=== PATIENT | female | born 1945 | race Caucasian/White ===

== ENCOUNTER 2016-11-15 08:00 | Inpatient (IN) | payer MEDICARE, OTHER ==
[~2016-11-15] VITALS: Ht 165.1 cm; Wt 85.8 kg
[2016-11-22] MEDS ORDERED: MIRA50TA PO ×2 (09:01)
[2016-11-22] MEDS ORDERED: IBUP200C PO ×2 (09:01)
[2016-11-22] MEDS ORDERED: FISH1000 PO ×2 (09:01)
[2016-11-22] MEDS ORDERED: COEN1CAP PO ×2 (09:01)
[2016-11-22] MEDS ORDERED: VITA10002 PO ×2 (09:01)
[2016-11-22] MEDS ORDERED: GLUC1CAP16 PO ×2 (09:01)
[2016-11-22] MEDS ORDERED: CRAN600T PO ×2 (09:01)
[2016-11-22] MEDS ORDERED: METF500T PO ×2 (09:01)
[2016-11-22] MEDS ORDERED: LEVO137T2 PO ×2 (09:01)
[2016-11-22] MEDS ORDERED: OXYC30TA PO ×2 (09:01)
[2016-11-22] MEDS ORDERED: VITA2000 PO ×2 (09:01)
--- NOTE | 2016-11-23 14:10 | MH ---
cc: Terry SANCHEZ M.D. DATE OF ADMISSION: 11/30/2016 ADMITTING DIAGNOSIS: Osteoarthritic degeneration of the left hip, now being admitted for left total hip arthroplasty. HISTORY OF PRESENT ILLNESS: This pleasant 71 year-old female is being admitted today for left total hip arthroplasty, due to severe painful osteoarthritic degeneration of the left hip. PAST MEDICAL HISTORY: She states that she is borderline diabetic Has some anesthetic problems and always runs a high calcium level, has sciatic and thyroid issues. CURRENT MEDICATIONS: 1. Thyroid medicine. 2. Metformin PREVIOUS SURGERIES: 1. Hysterectomy 2. Eye surgery. REVIEW OF SYSTEMS Noncontributory. FAMILY HISTORY: Noncontributory. SOCIAL HISTORY: She smokes four cigarettes per day and does not drink. ALLERGIES PENICILLIN SULFA STATINS ASPARTAME MELOXICAM PHYSICAL EXAMINATION: IN GENERAL: We find a 71 year-old female well-developed, well-nourished, alert and oriented times three. Complaining of pain in the left hip and inability to move her left hip well. VITAL SIGNS: Blood pressure 118/82. Pulse 89, regular, respirations 18, temperature 98.2, pulse oximetry 97% on room air. HEAD, EARS, EYES, NOSE, AND THROAT; Eyes Pupils equal, round, reactive to light and accommodation, extraocular muscles intact. Ear, nose, and mouth; clear. NECK: Supple. LUNGS: Clear. HEART: Regular rate. ABDOMEN: The abdomen is soft. Positive bowel sounds, nontender. EXTREMITIES: The extremities reveal a left hip without decreased range of motion. She is neurologically intact to her toes. IMPRESSION: At this time is severe osteoarthritic, degeneration of left hip. PLAN: Admission for left total hip arthroplasty today. The patient was given a prescription for postoperative pain control in the office and anticoagulation therapy and plans on going home after her stay in the hospital. JMD FRANNIE Mares/cl /1:31 PM /1:35 PM
[2016-11-30] MEDS ORDERED: LACTATED RINGER'S 1000 ML IV PRN (06:30)
[2016-11-30] MEDS ORDERED: METOPROLOL TARTRATE 25 MG TAB PO PRN (06:30)
[2016-11-30] MEDS ORDERED: CHLORHEXIDINE GLUCONATE 4% SOLN 120 ML BTL TOPICAL SCH (06:30)
[2016-11-30] MEDS ORDERED: CLINDAMYCIN 900 MG/NS 100 ML IV SCH ×2 (06:30)
[2016-11-30] MEDS ORDERED: SODIUM CHLORID 0.9% 500 ML IV PRN (06:30)
[2016-11-30] MEDS ORDERED: TRANEXAMIC ACID INJ 840 MG in SODIUM CHLORIDE 0.9% INJ 100 ML IV SCH (06:30)
[2016-11-30] MEDS ORDERED: EXPAREL PERI-ARTICULAR INJECTION (TOTAL VOL. 60 ML) P-ARTICULR SCH ×2 (06:30)
[2016-11-30] MEDS ORDERED: CHLORHEXIDINE GLUCONATE 2 % 1 PACK (2 CLOTHS) TOPICAL PRN (06:30)
[2016-11-30] MEDS ORDERED: INSULIN HUMAN REGULAR 1,000 UNITS/10 ML VIAL SQ PRN (06:30)
[2016-11-30] MEDS ORDERED: POVIDONE IODINE 5% (ANTISEPSIS KIT) 4 APPLICATIONS EACH NARE PRN (06:30)
[2016-11-30] MEDS ORDERED: VANCOMYCIN 1000 MG/NS 250 ML (for <70 kg) IV SCH ×2 (06:30)
[2016-11-30] MEDS ORDERED: SODIUM CHLORIDE 0.9% INJ 100 ML ONE (06:31)
[2016-11-30 06:43] VITALS: BP 131/69; PULSE 70; RESP 16; TEMP 98.1; O2SAT 95
[2016-11-30] MEDS ORDERED: MIDAZOLAM HCL 2 MG/2 ML VIAL ONE (07:30)
[2016-11-30] MEDS ORDERED: FAMOTIDINE 20 MG/2 ML VIAL ONE (07:30)
[2016-11-30] MEDS ORDERED: ACETAMINOPHEN 1000 MG/100 ML VIAL IV ONE (07:30)
[2016-11-30] MEDS ORDERED: DEXAMETHASONE SOD PHOS 4 MG/ML VIAL ONE (07:31)
[2016-11-30] MEDS ORDERED: KETAMINE HCL 500 MG/5 ML VIAL ONE (07:38)
[2016-11-30] MEDS ORDERED: NALOXONE HCL 0.4 MG/ML AMP IV PRN (08:00)
[2016-11-30] MEDS ORDERED: TEMAZEPAM 15 MG CAP PO PRN (08:00)
[2016-11-30] MEDS ORDERED: MISCELLANEOUS NURSING INFORMATION XX PRN (08:00)
[2016-11-30] MEDS ORDERED: ONDANSETRON HCL 4 MG/2 ML VIAL IVP PRN (08:00)
[2016-11-30] MEDS ORDERED: TRANEXAMIC ACID INJ 0 MG in SODIUM CHLORIDE 0.9% INJ 100 ML IV SCH (08:00)
[2016-11-30] MEDS ORDERED: BISACODYL 10 MG SUPP RECTAL PRN (08:00)
[2016-11-30] MEDS ORDERED: ACETAMINOPHEN 325 MG TAB PO PRN (08:00)
[2016-11-30] MEDS ORDERED: MORPHINE SULFATE 8 MG/ML INJ IV PUSH PRN (08:00)
[2016-11-30] MEDS ORDERED: MAGNESIUM HYDROXIDE SUSP 30 ML CUP PO PRN (08:00)
[2016-11-30] MEDS ORDERED: SODIUM CHLORIDE 0.9% FLUSH 5 ML FLUSH IVF PRN (08:00)
[2016-11-30] MEDS ORDERED: oxyCODONE/ACETAMINOPHEN 5 MG/325 MG TAB PO PRN (08:00)
--- NOTE | 2016-11-30 08:01 | HHI.FF ---
Face to Face Verification Diagnosis: (1) Status post total hip replacement, left Physical Therapy Gait training Hip: Total hip, Protocol: Left, Abduction pillow while in bed, Progress to weight bearing Canvas Knee Splint: When in bed & 2 pillows btw thighs Nursing RN: 3 days/week x 2 weeks Nursing: Roberto teaching Dressing Changes: Do not change dressing I have seen patient Luba Arias on 11/30/16. My clinical findings support the need for the requested home health care services because: Limited ability to care for self High risk of falls I certify that my clinical findings support that this patient is homebound because: Unsteady gait/balance Terry Hays MD November 30, 2016 08:01
[2016-11-30] MEDS ORDERED: MISC-163 (08:03)
[2016-11-30] MEDS ORDERED: WALKER WHEELS/F1 MIS (08:03)
[2016-11-30] MEDS: TRANEXAMIC ACID INJ 840 MG in SODIUM CHLORIDE 0.9% INJ 100 ML IV SCH ×2 (08:09→11:22)
[2016-11-30] MEDS ORDERED: GENTAMICIN SULFATE 80 MG/2 ML VIAL IRRIGATION ONE (08:44)
[2016-11-30] MEDS ORDERED: NON-FORMULARY DRUG (Levothyroxine 137 MCG) PO SCH (09:00)
[2016-11-30] MEDS ORDERED: NON-FORMULARY DRUG (Omega-3 Fatty Acids (Fish Oil) 1 CAP) PO SCH (09:00)
[2016-11-30] MEDS ORDERED: NON-FORMULARY DRUG (Coenzyme Q10 (Ubidecarenone) (Co Q-10) 1 CAP) PO SCH (09:00)
[2016-11-30] MEDS ORDERED: ENOXAPARIN SODIUM 30 MG/0.3 ML SYRINGE SQ SCH (09:00)
[2016-11-30] MEDS: CYANOCOBALAMIN 1,000 MCG TAB PO SCH (09:00)
[2016-11-30] MEDS ORDERED: GLUCOSAMINE CHONDROITIN VIT C PO SCH (09:00)
[2016-11-30] MEDS ORDERED: NON-FORMULARY DRUG (Mirabegron (Myrbetriq) 50 MG) PO SCH (09:00)
[2016-11-30] MEDS: CHOLECALCIFEROL (VIT D3) 1000 UNIT TAB PO SCH (09:00)
[2016-11-30] MEDS: SODIUM CHLORIDE 0.9% FLUSH 5 ML FLUSH IVF SCH ×2 (09:00→20:13)
[2016-11-30] MEDS: metFORMIN HCL 500 MG TAB PO SCH (10:00)
[2016-11-30] MEDS ORDERED: Post-op Orders (for Pharmacy) MISC XX ONE (10:31)
[2016-11-30] MEDS ORDERED: fentaNYL CITRATE 250 MCG/5 ML AMP ONE (10:39)
[2016-11-30] MEDS: LACTATED RINGER'S 1000 ML INJ 1,000 ML IV SCH ×2 (10:55→20:13)
[2016-11-30] MEDS: MORPHINE SULFATE 30 MG/30 ML PCA IV SCH ×2 (10:56→17:12)
[2016-11-30] MEDS ORDERED: DO NOT ADM ANY ANTICOAGULANT DRUGS PRN (11:00)
--- NOTE | 2016-11-30 11:20 | RADRPT ---
EXAM DATE/TIME: 11/30/2016 10:48 [facility] COMPARISON: No previous studies available for comparison. INDICATIONS : Post op left hip surgery. MEDICAL HISTORY : None. SURGICAL HISTORY : None. ENCOUNTER: Initial ACUITY: 1 day PAIN SCORE: 5/10 LOCATION: Left hip FINDINGS: Examination of the hip demonstrates total hip arthroplasty in satisfactory position. The alignment is anatomic. CONCLUSION: Post surgical changes as above. David Pablo MD on November 30, 2016 at 11:11 Board Certified Radiologist. This report was verified electronically.
[2016-11-30 11:50] VITALS: BP 159/71; PULSE 88; RESP 18; TEMP 97.1; O2SAT 97
[2016-11-30] MEDS ORDERED: ONDANSETRON HCL 4 MG/2 ML VIAL IV PUSH ONE (12:00)
[2016-11-30] MEDS ORDERED: PROPOFOL 200 MG/20 ML AMP IV ONE (12:00)
[2016-11-30] MEDS ORDERED: NEOSTIGMINE 3 MG/3 ML SYR IV ONE (12:00)
[2016-11-30] MEDS ORDERED: PHENYLEPH/NS 1000 MCG/10 ML SYR IV ONE (12:00)
[2016-11-30] MEDS ORDERED: ePHEDrine/NS 25 MG/5 ML SYR IV ONE (12:00)
[2016-11-30] MEDS ORDERED: LACTATED RINGER'S 1000 ML INJ 1,000 ML IV ONE (12:30)
--- NOTE | 2016-11-30 13:31 | MP ---
cc: Terry HAYS DATE OF SURGERY 11/30/2016 PREOPERATIVE DIAGNOSIS Osteoarthritic degeneration left hip. POSTOPERATIVE DIAGNOSIS Osteoarthritic degeneration left hip. SURGERY PERFORMED Left total hip arthroplasty using Aesculap components size 12 lateralized stem with a size 52 cup and 28-mm screw, 36 E-liner and 36 short ceramic head. No cement utilized. SURGEON Dr. Hays [facility], [facility] ANESTHESIA General intubation PROCEDURE The patient was brought to the Operating Room, where after successful induction of spinal anesthesia was placed on the operating room table in the right lateral decubitus position. The left hip, thigh and leg were prepped and draped in the usual manner. A posterolateral approach was then utilized by making an incision over the proximal portion of the femur lateral aspect, carried across the greater trochanter, carried posterior in a curved incision toward the buttock. The incision was carried down through the subcutaneous tissue, through the fibers of the tensor fascia genesis and gluteus gayla to expose the greater trochanteric bursa. This was then removed by sharp and blunt dissection. The hip was then internally rotated to expose the insertions of the short external rotators of the hip and were incised at their insertion into the greater trochanter and reflected posterior to protect the sciatic nerve. These were held with a Charnley retractor to better visualize the hip joint. The capsule was identified and removed by sharp dissection. The hip was then dislocated by internal rotation and flexion of the hip. The femoral calcar was then measured using the trial components for the appropriate length cut of the neck using an oscillating saw. After the cut was made the head was removed. The acetabulum was then approached and measured, the acetabulum reamed with the acetabular reamers. Next, the femoral calcar was approached by first inserting a canal finder followed by rigid reamers, followed by a cookie-cutter to the appropriate size, in this case being a #15. The broach was left in place and a planer used to plane the calcar to a smooth finish. The broach was then removed. The trial components were then inserted into place, the hip reduced, found to track smoothly with no evidence of subluxation or dislocation. All trial components were removed. The wound was irrigated copiously with antibiotic solution and Water-Pik. The actual components were then inserted and impacted into place using Aesculap components size 12 lateralized stem with a size 52 cup and 28-mm screw, 36 E-liner and 36 short ceramic head. No cement utilized. The hip was reduced, found to track smoothly with no evidence of subluxation or dislocation. 60 cc of Exparel was used as a local block on the anterior aspect of the hip incision staying away from the sciatic nerve. The wound was irrigated copiously with antibiotic solution, meticulous hemostasis achieved. The capsule was approximated with interrupted #1 Vicryl suture. The deep fascia approximated with running #2 quill, subcutaneous tissue approximated using interrupted running 2-0 and 4-0 Monocryl suture and a Primapore dressing, knee immobilizer and abduction pillow brace. No drain utilized. The sciatic nerve identified and protected throughout the procedure. The estimated blood loss was 250 cc. Sponge and suture counts correct. The patient tolerated procedure well and left the operating room in satisfactory condition. J. MD FRANNIE Urias/ALBAN /10:08 AM /1:22 PM
[2016-11-30] MEDS: PCA - TOTAL MG MORPHINE DELIVERED PER SHIFT SCH ×2 (14:00→20:47)
[2016-11-30] MEDS ORDERED: CLINDAMYCIN 150 MG CAP PO SCH (14:00)
[2016-11-30] MEDS: LEVOTHYROXINE SODIUM 112 MCG TAB PO SCH (15:14)
[2016-11-30] MEDS: TOLTERODINE TARTRATE 4 MG CAP LA PO SCH (15:15)
[2016-11-30] MEDS: LEVOTHYROXINE SODIUM 25 MCG TAB PO SCH (15:15)
[2016-11-30 16:00] VITALS: BP 128/62; PULSE 88; RESP 19; TEMP 97.1; O2SAT 94
[2016-11-30 19:50] VITALS: BP 143/63; PULSE 95; RESP 19; TEMP 98.1; O2SAT 96
[2016-11-30] MEDS: CLINDAMYCIN INJ 900 MG in SODIUM CHLORIDE 0.9% INJ 100 ML IV SCH (23:15)
[2016-11-30 23:25] VITALS: BP 146/67; PULSE 98; RESP 18; TEMP 98.7; O2SAT 96
[2016-12-01] MEDS: oxyCODONE/ACETAMINOPHEN 5 MG/325 MG TAB PO PRN ×4 (03:19→15:58)
[2016-12-01 04:35] VITALS: BP 126/58; PULSE 117; RESP 18; TEMP 98.9; O2SAT 97
[2016-12-01] MEDS: PCA - TOTAL MG MORPHINE DELIVERED PER SHIFT SCH (06:00)
[2016-12-01] MEDS: CLINDAMYCIN INJ 900 MG in SODIUM CHLORIDE 0.9% INJ 100 ML IV SCH (06:41)
[2016-12-01] MEDS: LEVOTHYROXINE SODIUM 112 MCG TAB PO SCH (06:41)
[2016-12-01] MEDS: LEVOTHYROXINE SODIUM 25 MCG TAB PO SCH (06:41)
[2016-12-01 07:58] LABS: HEMATOCRIT 34.8 % (35.0-46.0); REVIEW FLAG FINAL
[2016-12-01 08:00] VITALS: BP 105/67; PULSE 109; RESP 18; TEMP 99.7; O2SAT 93
--- NOTE | 2016-12-01 08:36 | PD.ORT.PN ---
Subjective Subjective Remarks pt fairly comfortable at present. Objective Vitals Vital Signs Date Time Temp Pulse Resp B/P Pulse Ox O2 Delivery O2 Flow Rate FiO2 12/01/16 08:00 99.7 109 18 105/67 93 12/01/16 06:00 18 12/01/16 04:35 98.9 117 18 126/58 97 11/30/16 23:25 98.7 98 18 146/67 96 11/30/16 20:47 18 11/30/16 19:50 98.1 95 19 143/63 96 11/30/16 16:00 97.1 88 19 128/62 94 11/30/16 12:51 16 11/30/16 11:50 97.1 88 18 159/71 97 11/30/16 11:40 97.7 91 20 144/75 100 Nasal Cannula 2 11/30/16 11:30 91 20 144/75 100 Nasal Cannula 2 11/30/16 11:15 81 20 137/77 98 Nasal Cannula 2 11/30/16 11:00 92 20 159/56 98 Nasal Cannula 2 11/30/16 10:56 18 11/30/16 10:45 92 20 179/74 100 Nasal Cannula 2 11/30/16 10:33 97.7 95 20 198/87 100 Nasal Cannula 2 I/O 11/30/16 11/30/16 11/30/16 12/01/16 12/01/16 12/01/16 07:00 15:00 23:00 07:00 15:00 23:00 Intake Total 1905 ml 720 ml 480 ml Output Total 300 ml Balance 1605 ml 720 ml 480 ml Intake Oral 480 ml 720 ml 480 ml IV Total 125 ml Other 1300 ml Output Urine Total 50 ml Estimated Blood Loss 250 ml # Voids 3 4 4 # Bowel Movements 0 0 Result Diagram: 12/01/16 0740 Objective Remarks Sitting up in chair. NV intact to toes. No calf tenderness. 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 Terry Hays MD December 01, 2016 08:36
[2016-12-01] MEDS: LACTATED RINGER'S 1000 ML INJ 1,000 ML IV SCH ×2 (08:54→20:18)
[2016-12-01] MEDS: SODIUM CHLORIDE 0.9% FLUSH 5 ML FLUSH IVF SCH ×2 (09:00→20:22)
[2016-12-01] MEDS ORDERED: PT OWN MYRBETRIQ 50 MG PO SCH (09:00)
[2016-12-01] MEDS: TOLTERODINE TARTRATE 4 MG CAP LA PO SCH (09:04)
[2016-12-01] MEDS: CYANOCOBALAMIN 1,000 MCG TAB PO SCH (09:04)
[2016-12-01] MEDS: ENOXAPARIN SODIUM 30 MG/0.3 ML SYRINGE SQ SCH ×2 (09:04→20:18)
[2016-12-01] MEDS: metFORMIN HCL 500 MG TAB PO SCH (09:04)
[2016-12-01] MEDS: CHOLECALCIFEROL (VIT D3) 1000 UNIT TAB PO SCH (09:05)
[2016-12-01 12:00] VITALS: BP 110/64; PULSE 100; RESP 18; TEMP 98.4; O2SAT 93
[2016-12-01 16:00] VITALS: BP 108/57; PULSE 105; RESP 18; TEMP 97.5; O2SAT 98
[2016-12-01 19:38] VITALS: BP 113/57; PULSE 74; RESP 18; TEMP 97.8; O2SAT 94
[2016-12-01] MEDS: MULTIVITAMINS/MINERALS THERAPEUTIC TAB PO SCH (20:18)
[2016-12-01] MEDS: DOCUSATE SODIUM 100 MG CAP PO SCH (20:18)
[2016-12-01 23:45] VITALS: BP 143/68; PULSE 110; RESP 18; TEMP 100.2; O2SAT 95
[2016-12-02 03:05] VITALS: BP 158/70; PULSE 110; RESP 19; TEMP 100.8; O2SAT 95
[2016-12-02 03:32] VITALS: BP 158/70; PULSE 110; RESP 19; TEMP 100.8; O2SAT 95
[2016-12-02] MEDS: LEVOTHYROXINE SODIUM 25 MCG TAB PO SCH (06:22)
[2016-12-02] MEDS: LEVOTHYROXINE SODIUM 112 MCG TAB PO SCH (06:22)
[2016-12-02 07:34] LABS: HEMATOCRIT 35.3 % (35.0-46.0); REVIEW FLAG FINAL
[2016-12-02 07:44] VITALS: BP 124/58; PULSE 117; RESP 19; TEMP 99.1; O2SAT 94
[2016-12-02] MEDS: SODIUM CHLORIDE 0.9% FLUSH 5 ML FLUSH IVF SCH (09:00)
[2016-12-02] MEDS: metFORMIN HCL 500 MG TAB PO SCH (09:00)
[2016-12-02] MEDS: TOLTERODINE TARTRATE 4 MG CAP LA PO SCH (09:02)
[2016-12-02] MEDS: MULTIVITAMINS/MINERALS THERAPEUTIC TAB PO SCH (09:02)
[2016-12-02] MEDS: CYANOCOBALAMIN 1,000 MCG TAB PO SCH (09:02)
[2016-12-02] MEDS: DOCUSATE SODIUM 100 MG CAP PO SCH (09:02)
[2016-12-02] MEDS: ENOXAPARIN SODIUM 30 MG/0.3 ML SYRINGE SQ SCH (09:02)
[2016-12-02] MEDS: CHOLECALCIFEROL (VIT D3) 1000 UNIT TAB PO SCH (09:02)
--- NOTE | 2016-12-02 09:40 | PD.ORT.PN ---
Subjective Subjective Remarks pt fairly comfortable at present. No complaints. Objective Vitals Vital Signs Date Time Temp Pulse Resp B/P Pulse Ox O2 Delivery O2 Flow Rate FiO2 12/02/16 07:44 99.1 117 19 124/58 94 12/02/16 03:32 100.8 110 19 158/70 95 12/02/16 03:05 100.8 110 19 158/70 95 12/01/16 23:45 100.2 110 18 143/68 95 12/01/16 19:38 97.8 74 18 113/57 94 12/01/16 16:00 97.5 105 18 108/57 98 12/01/16 12:00 98.4 100 18 110/64 93 I/O 12/01/16 12/01/16 12/01/16 12/02/16 12/02/16 12/02/16 07:00 15:00 23:00 07:00 15:00 23:00 Intake Total 480 ml 1442 ml 720 ml 480 ml Balance 480 ml 1442 ml 720 ml 480 ml Intake Oral 480 ml 720 ml 720 ml 480 ml IV Total 722 ml # Voids 4 4 5 6 # Bowel Movements 0 0 0 0 Result Diagram: 12/02/16 0709 Objective Remarks Sitting up in chair. NV intact to toes. No calf tenderness. Assessment & Plan Ortho Post Op Day #: 2 Problem List: Assessment and Plan PT, Home today with [facility]. Terry Hays MD December 02, 2016 09:40
--- NOTE | 2016-12-02 09:44 | HHI.DS ---
Discharge Summary Admission Date November 30, 2016 at 05:57 Discharge Date: December 02, 2016 Admitting Diagnosis osteoarthritic degeneration left hip Diagnosis: (1) Status post total hip replacement, left Diagnosis: Principal Brief History This is a 71 year old female patient CBC/BMP: 12/02/16 0709 Significant Findings Laboratory Tests Test 12/01/16 07:40 Hemoglobin 11.3 GM/DL (11.6-15.3) Hematocrit 34.8 % (35.0-46.0) PE at Discharge Sitting up in chair. NV intact to toes. No calf tenderness. Hospital Course Pt underwent left total hip on day of admission. She received a course of prophylactic IV antibiotics and started on anticoagulation therapy within 23 hours of surgery. She began OOB tolerating food and fluids well. She was switched to PO pain meds on POD #2. She ambulated well with PT and remained afebrile with temps below 101. She was discharged on POD #2 to home with HHC and PT in good condition and with instructions for follow up in the office. Pt Condition on Discharge: Good Discharge Disposition: Disch w/ Home Health Serv Discharge Instructions Diet Instructions: As Tolerated, No Restrictions Activities You Can Perform: Full Weight Bearing, Shower Only-No Bath Activities to Avoid: Bathing, Driving Terry Hays MD December 02, 2016 09:44
[2016-12-02] MEDS: LACTATED RINGER'S 1000 ML INJ 1,000 ML IV SCH (09:54)
[2016-12-02 11:38] VITALS: BP 123/60; PULSE 108; RESP 19; TEMP 99.2; O2SAT 96
== END 2016-12-02 12:31 | disposition home health service (06) | DRG 470 ==
LOC: HSDI 11-30 05:57 → N06A 11-30 11:58
PROVIDERS: ADMIT Surgery; ATTEND Surgery
PROC: 0SRB04A Replacement of Left Hip Joint with Ceramic on Polyethylene Synthetic Substitute, Uncemented, Open Approach (ICD-10-PCS; principal; 2016-11-30 07:44)
DX: M16.12 Unilateral primary osteoarthritis, left hip (principal); E03.9 Hypothyroidism, unspecified; R73.03 Prediabetes; F17.210 Nicotine dependence, cigarettes, uncomplicated
CPT/HCPCS: 73501; 82948; 85014; 85018; 86850; 86900; 86901; 94150; C1776; C9290; J0131; J1100; J1580; J1650; J2250; J2270; J2370; J2405; J2710; J3010; J3370; J7050; J7120; L1830

== ENCOUNTER → 2016-11-22 | Outpatient (CLI) | payer MEDICARE, OTHER ==
[~2016-11-22] MED LIST: CIPR-9 PO; COEN1CAP PO; CRAN600T PO; CRANCAP2 PO; FISH1000 PO; GLUC1CAP16 PO; HYDR-3533 PO; IBUP200C PO; LEVO137T2 PO; LEVO88TA2 PO; METF500T PO; MIRA50TA PO; MISC-163; MOME30SO TOP; OXYC30TA PO; PRED20 PO; TAMS5CAP PO; VITA10002 PO; VITA2000 PO; WALKER WHEELS/F1 MIS
[2016-11-22 09:13] LABS: AUTOMATED NEUTROPHIL # 3.2 TH/MM3 (1.8-7.7); BASOPHIL % 0.4 % (0.0-2.0); EOSINOPHIL # 0.1 TH/MM3 (0-0.4); EOSINOPHIL % 1.1 % (0.0-4.0); HEMATOCRIT 41.8 % (35.0-46.0); HEMO FLAGS DIFF FINAL; LYMPH % 41.6 % (9.0-44.0); LYMPHOCYTE # 2.7 TH/MM3 (1.0-4.8); MEAN CELL VOLUME 88.5 FL (80.0-100.0); MEAN CORPUSCULAR HGB CONC 33.9 % (32.0-36.0); MONO % 7.1 % (0.0-8.0); NEUT % 49.8 % (16.0-70.0); PLATELET COUNT 333 TH/MM3 (150-450); RED BLOOD COUNT 4.72 MIL/MM3 (4.00-5.30); RED CELL DISTRIBUTION WIDTH 14.4 % (11.6-17.2); WHITE BLOOD COUNT 6.5 TH/MM3 (4.0-11.0)
[2016-11-22 09:20] LABS: BACTERIA, URINE MANY /hpf; BLOOD, URINE NEG (NEG); GLUCOSE,URINE NEG (NEG); KETONE, URINE NEG (NEG); MUCUS URINE FEW /lpf (OCC); NITRITE,URINE POS (NEG); PH, URINE 5.5 (5.0-8.5); SQUAMOUS EPITHELIAL CELL URINE 1 /hpf (0-5); URINE COLOR YELLOW (YELLW/STRAW)
[2016-11-22 09:21] LABS: COMMENT (UR) CATH-CULTURE IND; CULTURE IF INDICATED CATH CULTURE IND
[2016-11-22 09:23] LABS: APTT (PATIENT) 26.6 SEC (24.3-30.1); PROTHROMBIN TIME - PATIENT 10.5 SEC (9.8-11.6)
[2016-11-22 09:42] LABS: ALKALINE PHOSPHATASE 151 U/L (45-117); ALT (GPT) 32 U/L (10-53); ANION GAP 7 MEQ/L (5-15); AST (GOT) 12 U/L (15-37); BICARBONATE 27.9 MEQ/L (21.0-32.0); BLOOD UREA NITROGEN 15 MG/DL (7-18); CHLORIDE 105 MEQ/L (98-107); GLOMERULAR FILTRATION RATE 69 ML/MIN (>89); GLUCOSE,FASTING 105 MG/DL (74-99); POTASSIUM 3.9 MEQ/L (3.5-5.1); SODIUM (NA) 140 MEQ/L (136-145); TOTAL BILIRUBIN ADULT 0.4 MG/DL (0.2-1.0)
--- NOTE | 2016-11-23 07:43 | EKG ---
Date Performed: 11/22/2016 Time Performed: 08:37:26 PTAGE: 71 years EKG: Sinus rhythm NONSPECIFIC T-WAVE ABNORMALITY BORDERLINE ECG NO PREVIOUS TRACING DOCTOR: Farhan Torres Interpretating Date/Time 11/23/2016 07:42:02
== END ==
LOC: CPRE 07:55
PROVIDERS: ATTEND Surgery
DX: Z01.810 Encounter for preprocedural cardiovascular examination (principal); Z01.812 Encounter for preprocedural laboratory examination; B96.1 Klebsiella pneumoniae [K. pneumoniae] as the cause of diseases classified elsewhere; R82.90 Unspecified abnormal findings in urine; E11.9 Type 2 diabetes mellitus without complications; E78.5 Hyperlipidemia, unspecified; E03.9 Hypothyroidism, unspecified; N39.41 Urge incontinence; E55.9 Vitamin D deficiency, unspecified
CPT/HCPCS: 36415; 80053; 80061; 81001; 82043; 82652; 83036; 84443; 85025; 85610; 85730; 87077; 87086; 87186; 93005

== ENCOUNTER → 2016-11-22 | Outpatient (CLI) | payer MEDICARE, OTHER ==
[2016-11-22 09:50] LABS: HDL CHOLESTEROL 32.9 MG/DL (40.0-60.0); LDL CHOLESTEROL 162 MG/DL (0-99)
[2016-11-22 11:14] LABS: HEMOGLOBIN A1b 1.7 %; HEMOGLOBIN Ao 84.4 %; HEMOGLOBIN LA1C 2.2 %; HEMOGLOBIN P3 5.5 %
== END ==
LOC: CLAB 08:10
PROVIDERS: ATTEND Internal Medicine
DX: E11.9 Type 2 diabetes mellitus without complications (principal); E78.5 Hyperlipidemia, unspecified; E03.9 Hypothyroidism, unspecified; N39.41 Urge incontinence; E55.9 Vitamin D deficiency, unspecified
CPT/HCPCS: 80061; 82043; 82652; 83036; 84443

== ENCOUNTER → 2016-11-26 | Outpatient (CLI) | payer MEDICARE, OTHER ==
[~2016-11-26] MED LIST changes: -LEVO88TA2 PO; -MOME30SO TOP; -PRED20 PO
[2016-11-26 08:46] LABS: BLOOD, URINE NEG (NEG); COMMENT (UR) CATH-CULT NOT IND; CULTURE IF INDICATED CATH CULTURE NOT IND; GLUCOSE,URINE NEG (NEG); KETONE, URINE NEG (NEG); MUCUS URINE FEW /lpf (OCC); NITRITE,URINE NEG (NEG); PH, URINE 5.5 (5.0-8.5); SQUAMOUS EPITHELIAL CELL URINE <1 /hpf (0-5); URINE COLOR YELLOW (YELLW/STRAW)
== END ==
LOC: CPRE 07:45
PROVIDERS: ATTEND Surgery
DX: Z01.812 Encounter for preprocedural laboratory examination (principal)
CPT/HCPCS: 81001

== ENCOUNTER 2016-12-20 17:15 | Emergency (ER) | payer MEDICARE, OTHER ==
[~2016-12-20] VITALS: Ht 165.1 cm; Wt 85.0 kg
[~2016-12-20 17:15] MED LIST changes: -CIPR-9 PO; -CRANCAP2 PO; -HYDR-3533 PO; -IBUP200C PO; -TAMS5CAP PO
[2016-12-20 17:16] VITALS: BP 148/68; PULSE 94; RESP 17; TEMP 98.8; O2SAT 97
[2016-12-20 19:00] LABS: BLOOD, URINE MOD (NEG); COMMENT (UR) CULT NOT INDICATED; CULTURE IF INDICATED CULT NOT INDICATED; GLUCOSE,URINE NEG (NEG); KETONE, URINE NEG (NEG); MUCUS URINE FEW /lpf (OCC); NITRITE,URINE NEG (NEG); PH, URINE 5.5 (5.0-8.5); SQUAMOUS EPITHELIAL CELL URINE 2 /hpf (0-5); URINE COLOR YELLOW (YELLW/STRAW)
[2016-12-20] MEDS ORDERED: SODIUM CHLOR 0.9% 1000 ML INJ 1,000 ML IV SCH (19:18)
[2016-12-20] MEDS ORDERED: CRANCAP2 PO (19:19)
[2016-12-20] MEDS ORDERED: MORPHINE SULFATE 4 MG/ML INJ IV PUSH ONE ×2 (19:30→20:45)
[2016-12-20] MEDS ORDERED: ONDANSETRON HCL 4 MG/2 ML VIAL IVP ONE (19:30)
[2016-12-20 19:58] LABS: AUTOMATED NEUTROPHIL # 7.2 TH/MM3 (1.8-7.7); BASOPHIL # 0.1 TH/MM3 (0-0.2); BASOPHIL % 0.6 % (0.0-2.0); EOSINOPHIL % 0.1 % (0.0-4.0); HEMATOCRIT 36.3 % (35.0-46.0); HEMO FLAGS DIFF FINAL; LYMPH % 17.6 % (9.0-44.0); LYMPHOCYTE # 1.7 TH/MM3 (1.0-4.8); MEAN CELL VOLUME 86.9 FL (80.0-100.0); MEAN CORPUSCULAR HEMOGLOBIN 29.2 PG (27.0-34.0); MEAN CORPUSCULAR HGB CONC 33.6 % (32.0-36.0); MONO % 5.5 % (0.0-8.0); NEUT % 76.2 % (16.0-70.0); PLATELET COUNT 531 TH/MM3 (150-450); RED BLOOD COUNT 4.18 MIL/MM3 (4.00-5.30); RED CELL DISTRIBUTION WIDTH 14.3 % (11.6-17.2); WHITE BLOOD COUNT 9.5 TH/MM3 (4.0-11.0)
--- NOTE | 2016-12-20 20:00 | PD ---
HPI Chief Complaint: Complaint Time Seen by Provider: 19:56 Travel History International Travel<30 days: No Contact w/Intl Traveler<30days: No History of Present Illness HPI 71-year-old female that presents to the ED for evaluation of left flank pain and lower quadrant abdominal pain. Per patient she's had this for today. Per patient his been going on since this morning. Not getting better. Per patient the pain is severe 10 out of 10. She states that about a year ago she was diagnosed with kidney stones and this feels very similar. She does state that she recently had surgery on her left hip and has had no issues with it. Per patient she has rehabilitation. She states that she had chills today. No fevers. Has dysuria and hesitancy as well as polyuria. No blood in the urine. No nausea or vomiting. No bowel movement issues. She states that she had the had a stent placed in her left urether. 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 ) Psychiatric: No Reproductive: No Respiratory: No Thyroid Disease: Yes Past Surgical History Abdominal Surgery: No AICD: No Body Medical Devices: NONE Cardiac Surgery: No Ear Surgery: No Endocrine Surgery: No Eye Surgery: Yes (CATARACT BILATERALLY) Genitourinary Surgery: Yes (LEFT STENT AND LITHOTRIPSY) Gynecologic Surgery: Yes (HYSTERECTOMY) Hysterectomy: Yes Joint Replacement: Yes (LEFT HIP SURGERY) Oral Surgery: No Pacemaker: No Thoracic Surgery: No Social History Alcohol Use: No Tobacco Use: Yes (1/2 pk per day) Substance Use: No Allergies-Medications (Allergen,Severity, Reaction): Coded Allergies: Bactrim (Verified Allergy, Severe, RASH, 12/20/16) Penicillin (Verified Allergy, Severe, HAND SWELLING, 12/20/16) HMG-CoA Reductase Inhibitors (Verified Adverse Reaction, Severe, MUSCLE PAIN, 12/20/16) Uncoded Allergies: artifical sweetners (Allergy, Severe, 08/12/09) Reported Meds & Prescriptions Reported Meds & Active Scripts Active Cipro (Ciprofloxacin HCl) 500 Mg Tab 500 Mg PO BID 7 Days Flomax (Tamsulosin HCl) 0.4 Mg Cap 0.4 Mg PO HS PRN Lortab (Hydrocodone-Acetaminophen) 5-325 Mg Tab 1 Tab PO Q6H PRN Walker with Front Wheels (Device) 1 Mis Mis 1 Ea .ROUTE DIRECTED Reported Cranberry Urinary Comfort (Vitamins C & E) 1 Cap 1 Cap PO DAILY Fish Oil (Pomerene-3 Fatty Acids) 1,000 Mg Cap 1 Cap PO DAILY Glucosamine Chondroitin (Ucsvobndihc-Odymdiocvzn-Zfm C-) 1 Cap Cap 1 Cap PO DAILY Co Q-10 (Coenzyme Q10 (Ubidecarenone)) 100 Mg Cap 1 Cap PO DAILY Vitamin B-12 (Cyanocobalamin) 1,000 Mcg Tab 1,000 Mcg PO DAILY Oxycodone (Oxycodone HCl) 30 Mg Tab 30 Mg PO Q6H PRN Metformin (Metformin HCl) 500 Mg Tab 500 Mg PO DAILY With a meal Levothyroxine (Levothyroxine Sodium) 137 Mcg Tab 137 Mcg PO DAILY Myrbetriq (Mirabegron) 50 Mg Tab 50 Mg PO DAILY Review of Systems Except as stated in HPI: all other systems reviewed are Neg Physical Exam Narrative GENERAL: SKIN: Warm and dry. HEAD: Atraumatic. Normocephalic. EYES: Pupils equal and round. No scleral icterus. No injection or drainage. ENT: No nasal bleeding or discharge. Mucous membranes pink and moist. Tongue is midline. No uvula deviation. NECK: Trachea midline. No JVD. CARDIOVASCULAR: Regular rate and rhythm. No murmurs, S3, S4. RESPIRATORY: No accessory muscle use. Clear to auscultation. Breath sounds equal bilaterally. GASTROINTESTINAL: Abdomen soft, non-tender, nondistended. Hepatic and splenic margins not palpable. CVA tendernes noted as well as LLQ abdominal pain noted. MUSCULOSKELETAL: Extremities without clubbing, cyanosis, or edema. No obvious deformities. Full ROM of the lower extremities. NEUROLOGICAL: Awake and alert. No obvious cranial nerve deficits. Motor grossly within normal limits. Five out of 5 muscle strength in the arms and legs. Normal speech. PSYCHIATRIC: Appropriate mood and affect; insight and judgment normal. Data Data Last Documented VS Vital Signs Date Time Temp Pulse Resp B/P Pulse Ox O2 Delivery O2 Flow Rate FiO2 12/20/16 17:16 98.8 94 17 148/68 97 Orders Urinalysis - C+S If Indicated (12/20/16 18:29) Complete Blood Count With Diff (12/20/16 19:11) Comprehensive Metabolic Panel (12/20/16 19:11) Lipase (12/20/16 19:11) Magnesium (Mg) (12/20/16 19:11) Lactic Acid (12/20/16 19:13) Ct Abd/Pel W/O Iv Contrast (12/20/16 19:18) Morphine Inj (Morphine Inj) (12/20/16 19:30) Ondansetron Inj (Zofran Inj) (12/20/16 19:30) Sodium Chlor 0.9% 1000 Ml Inj (Ns 1000 M (12/20/16 19:18) Morphine Inj (Morphine Inj) (12/20/16 20:45) Labs Laboratory Tests Test 12/20/16 12/20/16 18:20 19:30 Urine Color YELLOW Urine Turbidity CLEAR Urine pH 5.5 Urine Specific [place] 1.031 Urine Protein 30 mg/dL Urine Glucose (UA) NEG mg/dL Urine Ketones NEG mg/dL Urine Occult Blood MOD Urine Nitrite NEG Urine Bilirubin NEG Urine Urobilinogen LESS THAN 2.0 MG/DL Urine Leukocyte Esterase NEG Urine RBC 63 /hpf Urine WBC 2 /hpf Urine Squamous Epithelial 2 /hpf Cells Urine Mucus FEW /lpf Microscopic Urinalysis Comment CULT NOT INDICATED White Blood Count 9.5 TH/MM3 Red Blood Count 4.18 MIL/MM3 Hemoglobin 12.2 GM/DL Hematocrit 36.3 % Mean Corpuscular Volume 86.9 FL Mean Corpuscular Hemoglobin 29.2 PG Mean Corpuscular Hemoglobin 33.6 % Concent Red Cell Distribution Width 14.3 % Platelet Count 531 TH/MM3 Mean Platelet Volume 7.5 FL Neutrophils (%) (Auto) 76.2 % Lymphocytes (%) (Auto) 17.6 % Monocytes (%) (Auto) 5.5 % Eosinophils (%) (Auto) 0.1 % Basophils (%) (Auto) 0.6 % Neutrophils # (Auto) 7.2 TH/MM3 Lymphocytes # (Auto) 1.7 TH/MM3 Monocytes # (Auto) 0.5 TH/MM3 Eosinophils # (Auto) 0.0 TH/MM3 Basophils # (Auto) 0.1 TH/MM3 CBC Comment DIFF FINAL Differential Comment Sodium Level 139 MEQ/L Potassium Level 4.4 MEQ/L Chloride Level 106 MEQ/L Carbon Dioxide Level 25.1 MEQ/L Anion Gap 8 MEQ/L Blood Urea Nitrogen 20 MG/DL Creatinine 0.91 MG/DL Estimat Glomerular Filtration 61 ML/MIN Rate Random Glucose 119 MG/DL Lactic Acid Level 1.2 mmol/L Calcium Level 10.4 MG/DL Magnesium Level 2.1 MG/DL Total Bilirubin 0.3 MG/DL Aspartate Amino Transf 19 U/L (AST/SGOT) Alanine Aminotransferase 25 U/L (ALT/SGPT) Alkaline Phosphatase 148 U/L Total Protein 7.4 GM/DL Albumin 3.1 GM/DL Lipase 120 U/L MDM Medical Decision Making Medical Screen Exam Complete: Yes Emergency Medical Condition: Yes Medical Record Reviewed: Yes Interpretation(s) Last Impressions Abdomen/Pelvis CT 12/20/161917 Signed Impressions: Service Date/Time: Tuesday, December 20, 2016 19:32 - CONCLUSION: 1. 4 x 5 x 7 mm distal left ureteral stone causing severe obstructive uropathy. The stone is not well seen on the initial salesperson surgical appliances radiograph. 2. 3 mm nonobstructing stone of the left upper pole. 3. Subcentimeter benign angiomyolipoma the right kidney. No acute right renal abnormality demonstrated. Benny Segura MD UA shows blood CBC & BMP Diagram 12/20/16 19:30 Differential Diagnosis kidney stone vs flank pain vs pylonephritis vs UTI Narrative Course 71 yo female here for left flank pain. Patient was properly examined and concern for kidney stone. Labs and imaging ordered. Meds ordered. Labs and imaging show a stone. Case discussed in my attending who recommends speaking with urologist. Spoke with Dr. Rodriguez over the phone who recommends either admission for pain management and medical management for outpatient treatment. Patient prefers to go home. She agrees and understands reasons to come back. Patient will be given a prescription for Lortab, Cipro, Flomax. Patient was told that if anything worsens she is to come back. She was given 1 more dose of morphine here. Family and patient agree with plan. See ED worsening symptoms. Diagnosis Primary Impression: Kidney stone on left side Patient Instructions: General Instructions Additional Instructions: Take medications as prescribed. Follow-up with urologist in the next 48 hours. See ED for any worsening symptoms. Do not drink or drive while taking pain medication. Apply ice or heat as needed for pain Med/Other Pt SpecificInfo: Prescription(s) given Scripts Ciprofloxacin (Cipro)500 Mg [id number] Mg PO BID 7 Days Ref 0 Prov:Herlinda Vazquez MD 12/20/16 Tamsulosin (Flomax)0.4 Mg Cap0.4 Mg PO HS PRN (Manage Prostate Problems) #12 CAP Ref 0 Prov:Herlinda Vazquez MD 12/20/16 Hydrocodone-Acetaminophen (Lortab)5-325 Mg Tab1 Tab PO Q6H PRN (PAIN) #20 TAB Prov:Herlinda Vazquez MD 12/20/16 Disposition: 01 DISCHARGE HOME Condition: Rj Marte Dec 20, 2016 20:00
--- NOTE | 2016-12-20 20:00 | RADRPT ---
EXAM DATE/TIME: 12/20/2016 19:32 [facility] COMPARISON: No previous studies available for comparison. INDICATIONS : Left flank lower quadrant pain. ORAL CONTRAST: No oral contrast ingested. RADIATION DOSE: 16.30 CTDIvol (mGy) MEDICAL HISTORY : Diabetes SURGICAL HISTORY : Hysterectomy. ENCOUNTER: Initial ACUITY: 1 day PAIN SCALE: 6/10 LOCATION: Left Abdomen TECHNIQUE: Volumetric scanning of the abdomen and pelvis was performed. Using automated exposure control and ad justment of the mA and/or kV according to patient size, radiation dose was kept as low as reasonably achievable to obtain optimal diagnostic quality images. FINDINGS: LOWER LUNGS: The visualized lower lungs are clear. LIVER: Homogeneous density without lesion. There is no dilation of the biliary tree. No calcified gallston es. SPLEEN: Normal size without lesion. PANCREAS: Within normal limits. KIDNEYS: There is a 4 x 5 x 7 mm stone in the distal left ureter a few centimeters above the ureterovesical ju nction. There is associated severe hydronephrosis and hydroureter as well as perinephric edema. The l eft kidney is also swollen/enlarged. A 3 mm nonobstructing stone is seen of the left upper pole. No s tones or obstructive uropathy on the right. There is an approximately 6 mm benign angiomyolipoma the right mid zone. ADRENAL GLANDS: Within normal limits. VASCULAR: There is no aortic aneurysm. BOWEL/MESENTERY: The stomach, small bowel, and colon demonstrate no acute abnormality. There is no free intraperitone al air or fluid. ABDOMINAL WALL: Within normal limits. RETROPERITONEUM: There is no lymphadenopathy. BLADDER: No wall thickening or mass. REPRODUCTIVE: Within normal limits. INGUINAL: There is no lymphadenopathy or hernia. MUSCULOSKELETAL: No acute bony abnormality demonstrated. Previous arthroplasty of the left hip. There is severe osteoa rthritis of the right hip. CONCLUSION: 1. 4 x 5 x 7 mm distal left ureteral stone causing severe obstructive uropathy. The stone is not well seen on the initial vice president diversity radiograph. 2. 3 mm nonobstructing stone of the left upper pole. 3. Subcentimeter benign angiomyolipoma the right kidney. No acute right renal abnormality demonstrate vijay Segura MD on December 20, 2016 at 19:54 Board Certified Radiologist. This report was verified electronically.
[2016-12-20 20:27] LABS: ALKALINE PHOSPHATASE 148 U/L (45-117); ALT (GPT) 25 U/L (10-53); TOTAL BILIRUBIN ADULT 0.3 MG/DL (0.2-1.0)
[2016-12-20 20:35] LABS: ANION GAP 8 MEQ/L (5-15); AST (GOT) 19 U/L (15-37); BICARBONATE 25.1 MEQ/L (21.0-32.0); BLOOD UREA NITROGEN 20 MG/DL (7-18); CHLORIDE 106 MEQ/L (98-107); GLOMERULAR FILTRATION RATE 61 ML/MIN (>89); MAGNESIUM 2.1 MG/DL (1.5-2.5); POTASSIUM 4.4 MEQ/L (3.5-5.1); SODIUM (NA) 139 MEQ/L (136-145)
[2016-12-20] MEDS ORDERED: TAMS5CAP PO (20:48)
[2016-12-20] MEDS ORDERED: CIPR-9 PO (20:48)
[2016-12-20] MEDS ORDERED: HYDR-3533 PO (20:48)
== END 2016-12-20 21:05 | disposition home or self-care (01) ==
LOC: NEPD 17:15
DX: N20.2 Calculus of kidney with calculus of ureter (principal); E11.9 Type 2 diabetes mellitus without complications; F17.200 Nicotine dependence, unspecified, uncomplicated; Z79.84 Long term (current) use of oral hypoglycemic drugs; Z79.899 Other long term (current) drug therapy
CPT/HCPCS: 74176; 80053; 81001; 83605; 83690; 83735; 85025; 96361; 96374; 96375; 96376; 99285; J2270; J2405; J7030